=== PATIENT | male | born 1965 | race Caucasian/White ===

== ENCOUNTER 2018-05-23 12:10 | Emergency (ER) | payer BC ==
[~2018-05-23] VITALS: Ht 182.9 cm; Wt 97.5 kg
[~2018-05-23 12:10] MED LIST: IRON325 PO; NOHOMEMEDICATIONS; PRILOSEC40 MG PO; TRAMADOL 50 MG50 MG PO
[2018-05-23] MEDS ORDERED: VIMOVO 500-201 EACH PO (12:23)
[2018-05-23] MEDS ORDERED: XANAX 0.5 MG0.5 MG PO (12:27)
[2018-05-23 12:58] LABS: ABSOLUTE EOSINOPHILS 0.1 thou/uL (0.0-0.7); ABSOLUTE LYMPHOCYTES 2.5 thou/uL (0.8-5.3); ABSOLUTE MONOCYTES 0.5 thou/uL (0.0-1.2); ABSOLUTE NEUTROPHILS 3.7 thou/uL (1.6-8.1); BASOPHILS 0.4 %; EOSINOPHILS 1.4 %; HEMATOCRIT 51.9 % (42.0-52.0); LYMPHOCYTES 36.6 %; MCH 30.4 pg (26.0-34.0); MCHC 34.7 g/dL (28.0-37.0); MCV 87.7 fL (80.0-100.0); MPV 8.3 fl. (7.2-11.1); NUCLEATED RBCS 0 /100WBC; PLATELET COUNT* 307 thou/uL (150-400); POLYS 54.6 %; RBC 5.92 mil/uL (4.50-6.00); RDW-CV 13.4 % (10.5-14.5); WBC 6.8 thou/uL (4.0-11.0)
[2018-05-23 13:13] LABS: ALBUMIN 4.1 g/dL (3.4-5.0); ALKALINE PHOSPHATASE 108 U/L (46-116); ANION GAP 4 mmol/L (7-16); BUN 11 mg/dL (7-18); CALCIUM 8.8 mg/dL (8.5-10.1); CHLORIDE 104 mmol/L (98-107); CO2 31 mmol/L (21-32); GLUCOSE 125 mg/dL (70-99); POTASSIUM 4.3 mmol/L (3.5-5.1); SGOT 43 U/L (15-37); SGPT 97 U/L (30-65); SODIUM 139 mmol/L (136-145); TOTAL BILIRUBIN 0.9 mg/dL (<0.1-1.0); TOTAL PROTEIN 7.5 g/dL (6.4-8.2); TROPONIN-I LEVEL <0.06 ng/mL (<0.06)
[2018-05-23] MEDS ORDERED: CARAFATE 1 GM TA1 G1 PO (13:47)
[2018-05-23 14:06] VITALS: BP 144/57
--- NOTE | 2018-05-24 14:08 | EKG ---
[place] [address] ELECTROCARDIOGRAM REPORT Name: NORMA JOHNSON Brigitte Room: [facility]#: [id number] Admission: 05/23/18 Attend Phys: Discharge: 05/23/18 Date of : 63 Report #: [id number] THIS REPORT FOR: //name// [facility] ED Test Date: 2018-05-23 Test Time: 12:37:47 Pat Name: NORMA JOHNSON Department: Room: Gender: M Silk Presser: ELLE : 1965 Requested By: Alex Black Order Number: [id number] MD: Shahriar Sandhu Measurements Intervals [place] Rate: 59 P: 34 NC: 158 QRS: 37 QRSD: 78 T: 45 QT: 386 QTc: 383 Interpretive Statements Sinus rhythm Baseline wander in lead(s) V3 Compared to ECG 10/29/2013 05:10:41 Ventricular premature complex(es) no longer present T-wave abnormality no longer present Electronically Signed On 05-24-2018 14:08:37 [employer] by Shahriar Sandhu [email or web address] <ELECTRONICALLY SIGNED> By: Shahriar Sandhu MD, [facility] 05/24/18 1408 1237 1237 Shahriar Sandhu MD, [facility] /EPI
== END 2018-05-23 14:06 | disposition home or self-care (01) ==
LOC: M.ERS 12:10
PROVIDERS: Emergency Medicine Emergency Medical Services
DX: R42 Dizziness and giddiness (principal); I10 Essential (primary) hypertension; F41.9 Anxiety disorder, unspecified; Z88.6 Allergy status to analgesic agent; Z90.49 Acquired absence of other specified parts of digestive tract